=== PATIENT | female | born 1970 | race Caucasian/White ===

== ENCOUNTER 2020-11-22 01:23 | Emergency (ER) | payer OTHER ==
[~2020-11-22] VITALS: Ht 165.1 cm; Wt 53.6 kg
[~2020-11-22 01:23] MED LIST: ALPR2TAB2 PO; AMLO-186 PO; ARIP5TAB13 PO; ASPI-630 PO; ATOR40TA59 PO; ERTA1VIA16 IJ; FURO-68 PO; FURO20TA3 PO; GABA300C18 PO; HYDR-2765 PO; HYDR-3164 PO; IBUP-1007 PO; INSU100I17 SQ; INSU100V13 SQ; LAMO100T8 PO; LAMO150T4 PO; LEXAPRO20 MG PO; LIDO30CR2 TP; LISI-517 PO; LORA-434 PO; OXYB5SYR2 PO; ZOLP5TAB PO
[2020-11-22] MEDS ORDERED: SULF1TAB24 PO (02:14)
--- NOTE | 2020-11-22 02:14 | PHYS DOC ---
Past Medical History Past Medical History: Bipolar, COPD, CVA, Depression, Diabetes-Type II, F ibromyalgia, High Cholesterol, Hypertension Additional Past Medical Histor: sleep apnea Past Surgical History: Hysterectomy, Tubal ligation, Other Additional Past Surgical Histo: MULTIPLE TOE AMPUTATIONS, LAP BAND, Stomach abscess, 'boils' Smoking Status: Current Every Day Smoker Alcohol Use: None Drug Use: None General Adult EDM: Chief Complaint: LOWER EXT PAIN HPI: HPI: Patient is a 50-year-old female presenting for left anterior marie wound. This was first noticed yesterday without any known inciting event, trauma or irritation. Nothing known makes better or worse. Patient reports it is asymptomatic. Patient states she was at home and her mother was concerned given her history of uncontrolled type 2 diabetes and extensive skin complications such as osteomyelitis of right lower extremity requiring AKA surgery and MRSA bacteremia. She reports having weight loss surgery and coming off of most all medications, states her blood sugar has been well controlled, has been at baseline health without any recent antibiotic use or other major noteworthy kohli ges. No fever, vision changes, chest pain, shortness of breath, abdominal pain, dysuria, palpable crepitus at site, drainage. Patient and mother have been applying triple antibiotic ointment and gauze over lesion since it was first noticed yesterday afternoon. Review of Systems: Review of Systems: Fourteen body systems of review of systems have been reviewed. See HPI for pertinent positives and negative responses, other hernandez all other systems are negative, non-pertinent or non-contributory Heart Score: C/O Chest Pain: No HEART Score for Chest Pain: HEART Score for Chest Pain Response (Comments) Value Age >45 - < 65 1 Risk Factors >3 Risk Factors or Hx CAD 2 Total 3 Risk Factors: Risk Factors: DM, Current or recent (<one month) smoker, HTN, HLP, family history of CAD, obesity. Risk Scores: Score 0 - 3: 2.5% MACE over next 6 weeks - Discharge Home Score 4 - 6: 20.3% MACE over next 6 weeks - Admit for Clinical Observation Score 7 - 10: 72.7% MACE over next 6 weeks - Early Invasive Strategies Allergies: Allergies: Allergies Coded Allergies Type Severity Reaction Last Updated Verified vancomycin Allergy Intermediate RENAL FAILURE 04/20/15 Yes Physical Exam: PE: Constitutional: Well developed, well nourished, no acute distress, non-toxic appearance. HENT: Normocephalic, atraumatic, bilateral external ears normal, oropharynx moist, no oral exudates, nose normal. Eyes: PERRLA, EOMI, conjunctiva normal, no discharge. Neck: Normal range of motion, no tenderness, supple, no stridor. Cardiovascular: Heart rate regular, sinus rhythm, no murmurs rubs or gallops Lungs & Thorax: Bilateral breath sounds clear to auscultation Abdomen: Bowel sounds normal, soft, no tenderness, no masses, no pulsatile masses. Nonsurgical abdomen, no peritoneal signs Skin: Warm, dry, no erythema, no rash. Back: No tenderness, no CVA tenderness. Extremities: No tenderness, no cyanosis, no clubbing, ROM intact, no edema. Right AKA present with prosthetic limb in place. Left anterior marie with 3-1/2 x 2-1/2 cm area of erythema with mild skin breakdown without any palpable crepitus, streaking, fluctuance, induration. Negative Homans' sign Neurologic: Alert and oriented X 3, grossly normal motor & sensory function, no focal deficits noted. Psychologic: Affect normal, judgement normal, mood normal. EKG: EKG: [] Radiology/Procedures: Radiology/Procedures: [] Course & Med Decision Making: Course & Med Decision Making Discussed with the patient vitals and physical exam with most likely diagnosis of left anterior marie cellulitis without abscess. Mild skin breakdown and associated cellulitis mild but given patient's history, joint decision to treat with Bactrim to cover MRSA. Patient's home medications reviewed, she has not been taking her lisinopril, I advised her to avoid any potentially nephrotoxic medications during entire duration of Bactrim use and also educated on Bactrim related side effects such as skin changes of SJS etc. I stressed need for close outpatient follow-up to review today's ER visit. Strict return precautions were also discussed at length with good understanding by patient. Patient voiced understanding and agreement with the plan. Patient knows to come back for repeat evaluation if concerning signs or symptoms present prior to outpatient follow- up. Hemodynamically stable, ambulatory and well-appearing at time of disposition. Dragon Disclaimer: Dragon Disclaimer: This electronic medical record was generated, in whole or in part, using a voice recognition dictation system. Departure Departure Impression: Primary Impression: Infected abrasion of skin of left lower leg Disposition: HOME / SELF CARE / HOMELESS Condition: STABLE Referrals: KRISTIN GARZA MD (PCP) Patient Instructions: Skin Infections, Sulfamethoxazole; Trimethoprim, SMX-TMP tablets Additional Instructions: You were seen for a superficial skin infection called cellulitis. You should alfredo the area of redness when you get home. If your redness spreads past the marked area at 24 hours you should have it evaluated again. You do not have an abscess right now but you could develop one. If so you will need to have it d rained. You should return to the ED immediately if you develop worsening pain, fever, swelling, redness, drainage, any sign of abscess, or any other new or concerning symptoms. Take the entire course of antibiotics as prescribed. As disclosed, please avoid any kidney toxic medications such as lisinopril while taking your Bactrim Scripts Sulfamethoxazole/Trimethoprim (BACTRIM DS TABLET) 1 Each Tablet 1 TAB PO BID for 7 Days, #13 TAB 0 Refills Prov: LLOYD KEYS DO 11/22/20 LLOYD KEYS DO Nov 22, 2020 02:14
[2020-11-22] MEDS ORDERED: SMZ/TMP 800/160MG TABLET. PO ONE ×2 (02:15→02:18)
[2020-11-22] MEDS ORDERED: NEOMY/BACITR/POLYMYXIN OINT PACKET. TP ONE ×2 (02:15→02:18)
[2020-11-22 02:25] VITALS: BP 156/92
== END 2020-11-22 02:25 | disposition home or self-care (01) ==
LOC: ER 01:23
DX: S80.812A Abrasion, left lower leg, initial encounter (principal); F31.9 Bipolar disorder, unspecified; J44.9 Chronic obstructive pulmonary disease, unspecified; E11.9 Type 2 diabetes mellitus without complications; E78.00 Pure hypercholesterolemia, unspecified; I10 Essential (primary) hypertension; Z86.73 Personal history of transient ischemic attack (TIA), and cerebral infarction without residual deficits; Z90.710 Acquired absence of both cervix and uterus; Z98.51 Tubal ligation status; F17.200 Nicotine dependence, unspecified, uncomplicated; Z88.1 Allergy status to other antibiotic agents; X58.XXXA Exposure to other specified factors, initial encounter; Y93.89 Activity, other specified; Y92.89 Other specified places as the place of occurrence of the external cause; Y99.8 Other external cause status
CPT/HCPCS: 99283

== ENCOUNTER 2020-11-30 00:50 | Emergency (ER) | payer OTHER ==
[~2020-11-30] VITALS: Ht 165.1 cm; Wt 54.5 kg
[~2020-11-30 00:50] MED LIST changes: +SULF1TAB24 PO
[2020-11-30 02:05] VITALS: BP 128/75
--- NOTE | 2020-11-30 02:13 | PHYS DOC ---
Past Medical History Past Medical History: Bipolar, COPD, CVA, Depression, Diabetes-Type II, F ibromyalgia, High Cholesterol, Hypertension Additional Past Medical Histor: sleep apnea Past Surgical History: Hysterectomy, Tubal ligation, Other Additional Past Surgical Histo: MULTIPLE TOE AMPUTATIONS, LAP BAND, Stomach abscess, 'boils' Smoking Status: Current Every Day Smoker Alcohol Use: None Drug Use: None General Adult EDM: Chief Complaint: WOUND CHECK HPI: HPI: 50 yo F PMH gastric bypass and former diabetes, presents to the ED, stating she was seen in the ED on the and prescribed antibiotics. Is requesting her wound rechecked, is asking if it is healing appropriately if she needs more antibiotics. Review of Systems: Review of Systems: Constitutional: Denies fever or chills. [] Eyes: Denies change in visual acuity. [] HENT: Denies nasal congestion or sore throat. [] Respiratory: Denies cough or shortness of breath. [] Cardiovascular: Denies chest pain or edema. [] GI: Denies nausea, vomiting, Integument: Denies discoloration or diaphoresis MSK: No joint pain or lower extremity swelling Neurologic: Denies focal weakness or sensory changes. [] Psychiatric: Denies depression or anxiety. [] Heart Score: C/O Chest Pain: No Risk Factors: Risk Factors: DM, Current or recent (<one month) smoker, HTN, HLP, family history of CAD, obesity. Risk Scores: Score 0 - 3: 2.5% MACE over next 6 weeks - Discharge Home Score 4 - 6: 20.3% MACE over next 6 weeks - Admit for Clinical Observation Score 7 - 10: 72.7% MACE over next 6 weeks - Early Invasive Strategies Allergies: Allergies: Allergies Coded Allergies Type Severity Reaction Last Updated Verified vancomycin Adverse Reaction Intermediate RENAL FAILURE 11/22/20 Yes Physical Exam: PE: Constitutional: Well developed, well nourished, no acute distress, non-toxic appearance. HENT: Normocephalic, atraumatic, Eyes: EOMI, conjunctiva normal, no discharge. Neck: Normal range of motion, supple, Cardiovascular: S1/2 present, regular rhythm Lungs & Thorax: Speaking in full sentences, bilateral equal chest rise, no tachypnea or increased work of breathing Skin: Warm, dry, left leg with 5x3cm area over mid marie with granulation tissue, no erythema/fluctuance, skin borders of wound are dark and black Extremities: No tenderness, no cyanosis, no lower extremity edema Neurologic: Alert and oriented X 3, normal motor function, normal sensory function, no focal deficits noted. [] Psychologic: Affect normal, judgement normal, mood normal. [] Current Patient Data: Vital Signs: Vital Signs Date Time Temp Pulse Resp B/P (MAP) Pulse Ox O2 Delivery O2 Flow Rate FiO2 11/30/20 00:57 79 18 139/76 (97) 99 Room Air EKG: EKG: [] Radiology/Procedures: Radiology/Procedures: [] Course & Med Decision Making: Course & Med Decision Making Pertinent Labs and Imaging studies reviewed. (See chart for details) Concern for healing wound over left leg with no signs of cellulitis or infection. Would likely benefit from debridement. Will discharge home with strict ED return precautions were given for red rash, skin slouging, neurologic deficits or fever. Encouraged urgent outpatient follow-up with PMD and wound care. Life-threatening processes were considered but are low suspicion at this time, given history, physical exam and ED workup. Pt was educated on all prescription medications and adverse effects. All patient's questions were answered and pt was stable at time of discharge. Life/limb-threatening differential includes but is not limited to, erythema multiforme, pink-laz syndrome, toxic epidermal necrolysis, staphylococcal scalded skin syndrome, necrotizing fasciitis/myositis/cellulitis, purpura fulminans, heparin or warfarin induced skin necrosis, angioedema, anaphylaxis drug rash, disseminated intravascular coagulation, disseminated gonococcal disease, vasculitis, septicemia, petechial disorder or coagulopathy, viral exanthem, Kawasaki's disease or life-threatening burn requiring burn center management or escharotomy. I spoken with the patient and her caregivers. I explained the patient's condition, diagnoses and treatment plan based on the information available to me at this time. I have answered the patient and her caregiver's questions and addressed any concerns. The patient and her caregivers have a good understanding of patient's diagnosis, condition and treatment plan as can be expected at this point. Vital signs have been stable. Patient's condition is stable and appropriate for discharge from the emergency department. Patient will pursue further outpatient evaluation with primary care physician or other designated or consulting physician as outlined in the discharge instructions. The patient and/or caregivers are agreeable to this plan of care and follow-up instructions have been explained in detail. The patient and/or caregivers have received these instructions in written form and have expressed an understanding of the discharge instructions. The patient and/or caregivers are aware that any significant change of condition or worsening of symptoms should prompt immediate return to this or the closest emergency department or call to 911. Marcus Disclaimer: Dragon Disclaimer: This electronic medical record was generated, in whole or in part, using a voice recognition dictation system. Departure Departure Impression: Primary Impression: Encounter for wound re-check Disposition: HOME / SELF CARE / HOMELESS Condition: STABLE Referrals: KRISTIN GARZA MD (PCP) Patient Instructions: Wound Care, [id number], Wound Check Additional Instructions: FOLLOW UP WITH WOUND CARE: FOR DEFINITIVE MANAGEMENT [facility] [address], [address] [place] [address] EMERGENCY DEPARTMENT GENERAL DISCHARGE INSTRUCTIONS Thank you for coming to [facility] Emergency Department (ED) today and trusting us with you care. We trust that you had a positive experience in our Emergency Department. If you wish to speak to the department management, you may call the Director at [phone]. YOUR FOLLOW UP INSTRUCTIONS ARE FOLLOWS: 1. Do you have a private Doctor? If you do not have a private doctor, please ask for a resource list of physicians or clinics that may be able to assist you with follow up care. 2. The Emergency Physicain has interpreted your x-rays. The X-Ray specialist will also review them. If there is a change in the findings, you will be notified in 48 hours when at all possible. 3. A lab test or culture has been done, your results will be reviewed and you will be notified if you need a change in treatment. ADDITIONAL INSTRUCTIONS AND INFORMATION: 1. Your care today has been supervised by a physician who is specially trained in emergency care. Many problems require more than one evaluation for a complete diagnosis and treatment. We recommend that you schedule your follow up appointment as recommended to ensure complete treatment of you illness or injury. If you are unable to obtain follow up care and continue to have a problem, or if your condition worsens, we recommend that you return to the ED. 2. We are not able to safely determine your condition over the phone nor are we able to give sound medical advice over the phone. For these safety reasons, if you call for medical advice we will ask you to come to the ED for further evaluation. 3. If you have any questions regarding these discharge instructions please call the ED at [phone]. SAFETY INFORMATION: In the interest of safety, wellness, and injury prevention; we encourage you to wear your sealbelt, if you smoke; quite smoking, and we encourage family to use a protective helmet for bicycling and other sporting events that present an increased risk for head injury. IF YOUR SYMPTOMS WORSEN OR NEW SYMPTOMS DEVELOP, OR YOU HAVE CONCERNS ABOUT YOUR CONDITION; OR IF YOUR CONDITION WORSENS WHILE YOU ARE WAITING FOR YOUR FOLLOW UP APPOINTMENT; EITHER CONTACT YOUR PRIMARY CARE DOCTOR, THE PHYSICIAN WHOSE NAME AND NUMBER YOU WERE GIVEN, OR RETURN TO THE ED IMMEDIATELY. VIRGINIE MAGANA DO Nov 30, 2020 02:13
== END 2020-11-30 02:29 | disposition home or self-care (01) ==
LOC: ER 00:50
DX: Z48.01 Encounter for change or removal of surgical wound dressing (principal); E11.9 Type 2 diabetes mellitus without complications; F31.9 Bipolar disorder, unspecified; J44.9 Chronic obstructive pulmonary disease, unspecified; M79.7 Fibromyalgia; E78.00 Pure hypercholesterolemia, unspecified; I10 Essential (primary) hypertension; F17.200 Nicotine dependence, unspecified, uncomplicated; Z98.84 Bariatric surgery status; Z86.73 Personal history of transient ischemic attack (TIA), and cerebral infarction without residual deficits; Z90.710 Acquired absence of both cervix and uterus; Z98.51 Tubal ligation status; Z88.1 Allergy status to other antibiotic agents
CPT/HCPCS: 99281

== ENCOUNTER 2021-09-23 13:20 | Emergency (ER) | payer OTHER ==
[~2021-09-23] VITALS: Ht 160 cm; Wt 54.5 kg
[~2021-09-23 13:20] MED LIST changes: -LISI-517 PO; +LISI5TAB15 PO
[2021-09-23] MEDS ORDERED: HYDROcodone/APAP 5/325MG 1 TAB TABLET PO ONE (13:45)
[2021-09-23] MEDS ORDERED: cloNIDine HCL 0.1 MG TABLET PO ONE (13:45)
--- NOTE | 2021-09-23 14:29 | RAD ---
Exam: XR LT TIBIA + FIBULA History: Pain after struck by performed with nails. Comparison: None. Findings: Osseous mineralization is normal. No fracture or dislocation. There are degenerative changes of the m edial tibiofemoral compartment. Surgical clips in the popliteal fossa. Multiple phleboliths in the an terior marie. No radiopaque foreign body or subcutaneous emphysema is identified. Impression: 1. No acute osseous abnormality of the left tibia and fibula. No radiopaque foreign body. Electronically signed by: Luis Eduardo Acuña MD (09/23/2021 2:27 PM) [facility]
--- NOTE | 2021-09-23 15:00 | RAD ---
INDICATION: Reason: LLE pain, injury hx of DVT / Spl. Instructions: / History: COMPARISON: March 2020 TECHNIQUE: Grayscale, color and doppler ultrasound images were obtained of the left lower extremity v enous vasculature. LEFT: No thrombus identified in the common femoral vein, femoral vein, popliteal vein or visualized calf ve ins. IMPRESSION: * No thrombus identified in deep venous system of the left lower extremity. * Edema of soft tissues. Electronically signed by: Sav Ramsay MD (09/23/2021 2:58 PM) [id number]
[2021-09-23] MEDS ORDERED: GABA300C18 PO (15:44)
[2021-09-23] MEDS ORDERED: CEPH500T PO (15:44)
[2021-09-23] MEDS ORDERED: MUPI22OI2 TP (15:44)
--- NOTE | 2021-09-23 15:45 | PHYS DOC ---
Past Medical History Past Medical History: Bipolar, COPD, CVA, Depression, Diabetes-Type II, F ibromyalgia, High Cholesterol, Hypertension Additional Past Medical Histor: sleep apnea Past Surgical History: Other Additional Past Surgical Histo: R BKA Smoking Status: Current Every Day Smoker Alcohol Use: None Drug Use: None General Adult EDM: Chief Complaint: LOWEREXTREMITY INJURY HPI: HPI: Patient is a 51 year old female with history of diabetes type 2, hypertension, COPD, depression, right toes amputation, left below the knee amputation, DVTs, not on any blood thinners, openly states she does not see any PCP because she fired her PCP and will not take any medicines that the PCP had previously prescribed, who presents to the ED today complaining of wounds on the right lower extremity that began on Friday last week after piece of 2 x 4 with protruding nails fell on her leg. Review of Systems: Review of Systems: Constitutional: Denies fever or chills. [] Musculoskeletal: Denies back pain or joint pain. [] Integument: Reports wounds on the right lower extremity Neurologic: Denies headache, focal weakness or sensory changes. [] Psychiatric: Denies depression or anxiety. [] Heart Score: C/O Chest Pain: N/A Risk Factors: Risk Factors: DM, Current or recent (<one month) smoker, HTN, HLP, family history of CAD, obesity. Risk Scores: Score 0 - 3: 2.5% MACE over next 6 weeks - Discharge Home Score 4 - 6: 20.3% MACE over next 6 weeks - Admit for Clinical Observation Score 7 - 10: 72.7% MACE over next 6 weeks - Early Invasive Strategies Current Medications: Current Medications Medications (Trade) Dose Ordered Sig/Nancy Start Time Stop Time Status Last Admin Dose Admin Acetaminophen/ Hydrocodone Bitart (Lortab 5/325) 1 tab 1X ONCE 09/23/21 13:45 09/23/21 13:46 DC 09/23/21 13:46 1 TAB Clonidine HCl (Catapres) 0.2 mg 1X ONCE 09/23/21 13:45 09/23/21 13:46 DC 09/23/21 13:46 0.2 MG Allergies: Allergies: Allergies Coded Allergies Type Severity Reaction Last Updated Verified vancomycin Adverse Reaction Intermediate RENAL FAILURE 11/22/20 Yes Physical Exam: PE: Constitutional: Frail-older than age appearing female Skin: Left below the knee amputation, right toes amputation, the back of the right lower extremity just above the Achilles tendon with multiple nail puncture wounds consistent with being hit by a 2 x 4 with nail. The areas are erythematous, no drainage, no warmth. +2 right pedal pulse. Back: No tenderness, no CVA tenderness. [] Extremities: No tenderness, no cyanosis, no clubbing, ROM intact, no edema. [] Neurologic: Alert and oriented X 3, normal motor function, normal sensory function, no focal deficits noted. [] Psychologic: Affect normal, judgement normal, mood normal. [] Current Patient Data: Vital Signs: Vital Signs Date Time Temp Pulse Resp B/P (MAP) Pulse Ox O2 Delivery O2 Flow Rate FiO2 09/23/21 13:46 81 207/101 09/23/21 13:46 16 97 Room Air 09/23/21 13:25 98.7 98.7 EKG: EKG: [] Radiology/Procedures: Radiology/Procedures: []PROCEDURE: TIBIA FIBULA LEFT Exam: XR LT TIBIA + FIBULA History: Pain after struck by performed with nails. Comparison: None. Findings: Osseous mineralization is normal. No fracture or dislocation. There are degenerative changes of the medial tibiofemoral compartment. Surgical clips in the popliteal fossa. Multiple phleboliths in the anterior marie. No radiopaque foreign body or subcutaneous emphysema is identified. Impression: 1. No acute osseous abnormality of the left tibia and fibula. No radiopaque foreign body. Electronically signed by: Luis Eduardo Cortez MD (09/23/2021 2:27 PM) [facility] DICTATED and SIGNED BY: LUIS EDUARDO CORTEZ MD DATE: 09/23/21 1423 PROCEDURE: VENOUS LOWER EXTREMITY LEFT INDICATION: Reason: LLE pain, injury hx of DVT / Spl. Instructions: / History: COMPARISON: March 2020 TECHNIQUE: Grayscale, color and doppler ultrasound images were obtained of the left lower extremity venous vasculature. LEFT: No thrombus identified in the common femoral vein, femoral vein, popliteal vein or visualized calf veins. IMPRESSION: * No thrombus identified in deep venous system of the left lower extremity. * Edema of soft tissues. Electronically signed by: Joe Phillips MD (09/23/2021 2:58 PM) [id number] DICTATED and SIGNED BY: JOE PHILLIPS MD DATE: 09/23/21 1454 Course & Med Decision Making: Course & Med Decision Making Pertinent Labs and Imaging studies reviewed. (See chart for details) This is a 51-year-old female noncompliant patient presented to the ED today with wounds on the back of the right lower extremity that began on Friday after 2 x 4 with a nails protruding fell on her leg. Venous Doppler of the right lower extremity is negative, tib-fib x-rays of the right lower extremities are negative. Patient has significant history of amputations. She has left below the knee amputation as well as right toes amputation from noncompliance with diabetes. Tetanus is up-to-date. Patient was discharged on mupirocin and cephalexin- prophylaxis. Her blood pressure was 207/100, she clearly states she fired her doctor and will not take any medications that the previous doctor prescribed for her. Encourage her to get a PCP for her health management. Dragon Disclaimer: Dragon Disclaimer: This electronic medical record was generated, in whole or in part, using a voice recognition dictation system. Departure Departure Impression: Primary Impression: Puncture wound of lower leg, right Qualified Codes: S81.831A - Puncture wound without foreign body, right lower leg, initial encounter Additional Impression: Uncontrolled hypertension Disposition: 01 HOME / SELF CARE / HOMELESS Condition: STABLE Referrals: KRISTIN GARZA MD (PCP) follow up on one week Patient Instructions: Hypertension, Puncture Wound, [id number] Additional Instructions: You were evaluated in the emergency room and noted to have wounds on your right lower extremity. Please use the prescribed medications as ordered. Please try and establish care with a primary care doctor. You seriously need to get back on your medicines. Scripts Gabapentin (GABAPENTIN ) 300 Mg Capsule 300 MG PO TID for NEUROGENIC PAIN, #30 CAP Prov: TASHA MCKEON [employer] 09/23/21 Mupirocin (MUPIROCIN OINTMENT) 22 Gm Oint...g. 1 MIKE TP TID for WOUND CARE, #1 EACH Prov: TASHA MCKEON [employer] 09/23/21 Cephalexin (CEPHALEXIN) 500 Mg Tablet 1 TAB PO TID, #30 TAB Prov: MIKETASHA Mikki [employer] 09/23/21 TASHA MCKEON [employer] WORK[employer] Sep 23, 2021 15:45
[2021-09-23 15:48] VITALS: BP 201/98
[2021-09-23] MEDS ORDERED: LIDO:MAALOX 1:1 20 ML SINGLE DOSE. SWSW ONE (16:00)
== END 2021-09-23 16:00 | disposition home or self-care (01) ==
LOC: ER 13:20
DX: S81.831A Puncture wound without foreign body, right lower leg, initial encounter (principal); F31.9 Bipolar disorder, unspecified; E11.9 Type 2 diabetes mellitus without complications; J44.9 Chronic obstructive pulmonary disease, unspecified; E78.00 Pure hypercholesterolemia, unspecified; I10 Essential (primary) hypertension; Z86.73 Personal history of transient ischemic attack (TIA), and cerebral infarction without residual deficits; F17.200 Nicotine dependence, unspecified, uncomplicated; Z88.1 Allergy status to other antibiotic agents; W22.8XXA Striking against or struck by other objects, initial encounter; Y93.89 Activity, other specified; Y92.89 Other specified places as the place of occurrence of the external cause; Y99.8 Other external cause status
CPT/HCPCS: 73590; 93971; 99284